=== PATIENT | male | born 1990 | race Hispanic/Latino ===

== ENCOUNTER 2020-08-05 14:42 | Emergency (ER) | payer SELFPAY ==
[~2020-08-05] VITALS: Ht 167.6 cm; Wt 97.5 kg
== END 2020-08-05 17:54 | disposition home or self-care (01) ==
LOC: ED 14:42
DX: R21 Rash and other nonspecific skin eruption (principal); R05 Cough
CPT/HCPCS: 36415; 83605; 85025; 85651; 99283; Q0163

== ENCOUNTER 2021-07-01 22:24 | Emergency (ER) | payer BC ==
[~2021-07-01] VITALS: Ht 167.6 cm; Wt 97.5 kg
[2021-07-01] MEDS ORDERED: CYCLOBENZAPRINE10 MG PO (23:30)
[2021-07-01] MEDS ORDERED: CARAFATE1 GM PO (23:32)
--- NOTE | 2021-07-02 08:02 | EKG ---
[facility] [address] [facility] [address] [facility] [place], [place] [address] Signed Sinus tachycardia Otherwise normal ECG No previous ECGs available Confirmed by ANITA ROME MD ([id number] on 07/02/2021 8:02:02 AM Electronically Signed By: ANITA ROME MD 07/02/21 0802 PATIENT NAME: JASON JONES Electrocardiogram DATE OF : [birth year] PHYSICIAN: ANITA ROME MD REPORT #: [id number] REPORT IS CONFIDENTIAL AND NOT TO BE RELEASED WITHOUT AUTHORIZATION
== END 2021-07-02 01:09 | disposition home or self-care (01) ==
LOC: ED 22:24
DX: R07.89 Other chest pain (principal)
CPT/HCPCS: 36415; 71045; 80048; 83735; 84484; 85025; 85379; 93005; 93010; 96374; 99285-25; J1790; J2270